=== PATIENT | male | born 1980 | race Asian ===

== ENCOUNTER 2018-05-20 11:43 | Inpatient (IN) | payer MEDICAID ==
[~2018-05-20] VITALS: Ht 167.6 cm; Wt 64.0 kg
[~2018-05-20 11:43] MED LIST: ACET-2178 PO; ACET-2708 PO; ASCO500C18 PO; BACL-141 PO; BISA10SU62 RC; CRAN1CAP10 PO; DEXT15DR5 EACHEYE; DICL100G16 TP; DOCU-138 PO; FERR220S12 PO; GABA-531 PO; HYDR2TAB4 PO; HYDR50CA5 PO; HYDR50TA54 PO; IPRA3AMP9 HHN; LORA0.5T2 PO; LOV40 SUBCUT; MELA5TAB3 PO; MIDO10TA PO; MOM PO; MULT1TAB67 PO; NA P230E RC; OCD MT; OMEP20CA10 PO; SENN-22 PO
[2018-05-20] MEDS ORDERED: FENTANYL CITRATE/PF 50MCG/ML 2ML VIAL IV ONE (12:30)
[2018-05-20] MEDS ORDERED: ONDANSETRON HCL 4MG/2ML INJ IV ONE (12:30)
[2018-05-20] MEDS ORDERED: SODIUM CHLORIDE 0.9% 1000ML BAG (SEPSIS BOLUS) IV ONE (12:30)
[2018-05-20 12:53] LABS: BG BASE EXCESS -1.1 mmol/L (-2.0-2.0); BG CARBOXYHEMOGLOBIN 0.3 % (0.5-1.5); BG DEOXYHEMOGLOBIN 2.1 % (0.0-5.0); BG FRACTION INSPIRED OXYGEN 21; BG HCO3 ACT 21.4 mmol/L (22.0-26.0); BG METHEMOGLOBIN 0.3 % (0.0-1.5); BG OXYGEN SATURATION 97.9 % (92.0-98.5); BG OXYHEMOGLOBIN 97.3 % (94.0-97.0); BG PH 7.501 (7.350-7.450); BG PO2 95.4 mmHg (75.0-100.0); BG SAMPLE SITE RIGHT RADIAL; BG TOTAL HEMOGLOBIN 9.4 g/dL (12.0-18.0); BG VENT MODE ROOM AIR
[2018-05-20 13:04] LABS: BASOPHILS % 0.9 % (0.0-2.0); EOSINOPHILS % 0.8 % (0.0-5.0); HEMATOCRIT. 25.3 % (42.0-52.0); HEMOGLOBIN. 8.2 g/dL (14.0-18.0); LYMPHOCYTES % 9.7 % (20.0-50.0); MEAN CORPUSCULAR HEMOGLOBIN 26.2 pg (28.0-32.0); MEAN CORPUSCULAR VOLUME 80.6 fL (80.0-94.0); MONOCYTES % 6.3 % (2.0-8.0); NEUTROPHILS % 82.3 % (40.0-76.0); PLATELET 577 x1000/uL (130-400); RED BLOOD CELL COUNT 3.14 mill/uL (4.7-6.1); RED CELL DISTRIBUTION WIDTH 16.6 % (11.6-14.6)
[2018-05-20 13:06] LABS: INR 1.2; PARTIAL THROMBOPLASTIN TIME 38.1 sec (23.4-31.0); PROTHROMBIN TIME 11.7 sec (9.1-11.1)
[2018-05-20 13:08] LABS: CHLORIDE 92 mEq/L (98-107)
[2018-05-20 13:32] LABS: CLARITY URINE CLEAR (CLEAR); COLOR URINE YELLOW (YELLOW); KETONES URINE NEGATIVE (NEGATIVE); LEUKOCYTE ESTERASE URINE 2+ (NEGATIVE); NITRITE URINE NEGATIVE (NEGATIVE); OCCULT BLOOD URINE 2+ (NEGATIVE); PH URINE 6.5 (4.5-8.0); PROTEIN URINE NEGATIVE (NEGATIVE); SPECIFIC GRAVITY URINE 1.003 (1.005-1.030)
[2018-05-20] MEDS ORDERED: CEFTRIAXONE 1 G PREMIX 50 ML IV ONE (14:00)
[2018-05-20] MEDS ORDERED: LEVOFLOXACIN 500MG PREMIX 100 ML IV ONE (14:00)
[2018-05-20 17:24] VITALS: BP 95/65
[2018-05-20 18:00] VITALS: BP 101/66
[2018-05-20 20:00] VITALS: BP 99/61
[2018-05-20] MEDS: ENOXAPARIN 40MG/0.4ML SYR SUBCUT SCH (20:55)
[2018-05-20] MEDS: HYDROCODONE/ACETAMINOPHEN 5/325MG TABLET PO PRN (20:55)
[2018-05-20] MEDS: SODIUM CHLORIDE 0.9% 1,000 ML IV SCH (20:56)
[2018-05-20 22:00] VITALS: BP 106/68
[2018-05-21] VITALS (12 sets, daily range): BP systolic 91–127; BP diastolic 55–83
[2018-05-21] MEDS: HYDROCODONE/ACETAMINOPHEN 5/325MG TABLET PO PRN ×3 (05:35→22:51)
[2018-05-21 06:55] LABS: BASOPHILS % 0.5 % (0.0-2.0); EOSINOPHILS % 2.8 % (0.0-5.0); HEMATOCRIT. 23.3 % (42.0-52.0); HEMOGLOBIN. 7.5 g/dL (14.0-18.0); LYMPHOCYTES % 10.5 % (20.0-50.0); MEAN CORPUSCULAR HEMOGLOBIN 26.3 pg (28.0-32.0); MEAN CORPUSCULAR VOLUME 81.7 fL (80.0-94.0); NEUTROPHILS % 79.2 % (40.0-76.0); PLATELET 525 x1000/uL (130-400); RED BLOOD CELL COUNT 2.85 mill/uL (4.7-6.1); RED CELL DISTRIBUTION WIDTH 16.8 % (11.6-14.6)
[2018-05-21 07:18] LABS: CHLORIDE 99 mEq/L (98-107)
[2018-05-21] MEDS: SODIUM CHLORIDE 0.9% 1,000 ML IV SCH ×2 (09:07→22:49)
[2018-05-21] MEDS ORDERED: ACETAMINOPHEN 325MG TABLET PO PRN (10:00)
[2018-05-21] MEDS: ACETAMINOPHEN 325MG TABLET PO PRN (10:02)
[2018-05-21] MEDS: OMEPRAZOLE 20MG CAPSULE EXTENDED RELEASE PO SCH (10:30)
[2018-05-21] MEDS: LEVOFLOXACIN 750MG PREMIX 150 ML IV SCH (11:00)
[2018-05-21] MEDS: GABAPENTIN 300MG CAPSULE PO SCH ×2 (13:54→22:49)
[2018-05-21] MEDS ORDERED: HYDRALAZINE 20MG/ML VIAL IV PRN (18:30)
[2018-05-21 19:38] LABS: HEMOGLOBIN 7.6 g/dL (14.0-18.0)
[2018-05-21 20:35] LABS: HEPATITIS B SURFACE ANTIGEN NEGATIVE
[2018-05-21 21:04] LABS: HEPATITIS B CORE AB IGM NEGATIVE
[2018-05-21 21:05] LABS: HEPATITIS A AB IGM NEGATIVE (NEGATIVE)
[2018-05-22] VITALS (7 sets, daily range): BP systolic 97–151; BP diastolic 59–102
[2018-05-22] MEDS: HYDROCODONE/ACETAMINOPHEN 5/325MG TABLET PO PRN ×3 (03:09→22:22)
[2018-05-22] MEDS: ACETAMINOPHEN 325MG TABLET PO PRN ×3 (04:53→21:05)
[2018-05-22] MEDS: OMEPRAZOLE 20MG CAPSULE EXTENDED RELEASE PO SCH (06:13)
[2018-05-22] MEDS: GABAPENTIN 300MG CAPSULE PO SCH ×3 (06:13→21:05)
[2018-05-22 07:28] LABS: BASOPHILS % 0.7 % (0.0-2.0); EOSINOPHILS % 3.5 % (0.0-5.0); HEMATOCRIT. 24.5 % (42.0-52.0); LYMPHOCYTES % 11.1 % (20.0-50.0); MEAN CORPUSCULAR HEMOGLOBIN 26.6 pg (28.0-32.0); MEAN CORPUSCULAR VOLUME 81.9 fL (80.0-94.0); MEAN PLATELET VOLUME 6.8 fl (7.4-10.4); MONOCYTES % 6.4 % (2.0-8.0); NEUTROPHILS % 78.3 % (40.0-76.0); PLATELET 563 x1000/uL (130-400); RED BLOOD CELL COUNT 2.99 mill/uL (4.7-6.1); RED CELL DISTRIBUTION WIDTH 16.6 % (11.6-14.6)
[2018-05-22 07:55] LABS: CHLORIDE 97 mEq/L (98-107)
[2018-05-22] MEDS: DOCUSATE SODIUM 100MG CAPSULE PO PRN ×2 (11:08→11:10)
[2018-05-22] MEDS: LEVOFLOXACIN 750MG PREMIX 150 ML IV SCH (11:10)
[2018-05-22] MEDS: SODIUM CHLORIDE 0.9% 1,000 ML IV SCH ×2 (11:11→16:57)
[2018-05-22] MEDS ORDERED: NA PHOS,M-B/NA PHOS,DI-BA ENEMA 118ML PR PRN (13:15)
[2018-05-22] MEDS ORDERED: BISACODYL 10MG SUPP PR NR (13:15)
[2018-05-22] MEDS ORDERED: BISACODYL 10MG SUPP PR PRN (13:15)
[2018-05-23] VITALS: BP 109/74
[2018-05-23] MEDS: SODIUM CHLORIDE 0.9% 1,000 ML IV SCH (03:30)
[2018-05-23 04:00] VITALS: BP 98/57
[2018-05-23] MEDS: ACETAMINOPHEN 325MG TABLET PO PRN ×2 (04:38→14:57)
[2018-05-23] MEDS: GABAPENTIN 300MG CAPSULE PO SCH ×3 (06:23→21:27)
[2018-05-23] MEDS: OMEPRAZOLE 20MG CAPSULE EXTENDED RELEASE PO SCH (06:24)
[2018-05-23] MEDS: HYDROCODONE/ACETAMINOPHEN 5/325MG TABLET PO PRN (06:24)
[2018-05-23 07:07] LABS: CHLORIDE 95 mEq/L (98-107)
[2018-05-23 07:22] LABS: HEMATOCRIT 23.6 % (42.0-52.0); HEMOGLOBIN 7.7 g/dL (14.0-18.0); MEAN CORPUSCULAR HEMOGLOBIN 26.5 pg (28.0-32.0); MEAN CORPUSCULAR VOLUME 81.6 fL (80.0-94.0); RED CELL DISTRIBUTION WIDTH 17.1 % (11.6-14.6)
[2018-05-23 08:00] VITALS: BP 100/62
[2018-05-23 09:25] LABS: PLATELET 527 x1000/uL (130-400)
[2018-05-23] MEDS ORDERED: LIDOCAINE HCL 1% 20ML VIAL (Pyxis) INJ ONE (09:33)
[2018-05-23] MEDS ORDERED: SODIUM BICARBONATE 4% (2.4MEQ) 5ML VIAL IV ONE (09:33)
[2018-05-23 11:44] VITALS: BP 122/88
[2018-05-23] MEDS ORDERED: LINEZOLID 600 MG PREMIX 300 ML IV SCH (12:30)
[2018-05-23] MEDS ORDERED: MEROPENEM 500 MG in SODIUM CHLORIDE 0.9% 50 ML IV SCH (12:30)
[2018-05-23] MEDS: NITROFURANTOIN 100MG M/M CAPSULE PO SCH ×2 (15:00→22:58)
[2018-05-23] MEDS ORDERED: MEROPENEM 1000MG in NORMAL SALINE 100ML IV SCH (15:00)
[2018-05-23 16:00] VITALS: BP 103/64
[2018-05-23] MEDS ORDERED: VANCOMYCIN 2,000 MG in DEXT 5% WATER 500 ML IV NR (17:00)
[2018-05-23] MEDS: MEROPENEM 1000MG in NORMAL SALINE 100ML IV SCH (17:34)
[2018-05-23 20:00] VITALS: BP 104/67
[2018-05-23] MEDS: VANCOMYCIN 1250MG in DEXTROSE 5% WATER 250ML IV SCH (23:04)
[2018-05-24] VITALS: BP 111/79
[2018-05-24] MEDS: ACETAMINOPHEN 325MG TABLET PO PRN (00:14)
[2018-05-24] MEDS: MEROPENEM 1000MG in NORMAL SALINE 100ML IV SCH ×3 (02:00→17:26)
[2018-05-24 04:00] VITALS: BP 116/87
[2018-05-24] MEDS: OMEPRAZOLE 20MG CAPSULE EXTENDED RELEASE PO SCH (06:18)
[2018-05-24] MEDS: GABAPENTIN 300MG CAPSULE PO SCH ×3 (06:18→21:15)
[2018-05-24 07:00] LABS: HEMATOCRIT 23.2 % (42.0-52.0); HEMOGLOBIN 7.4 g/dL (14.0-18.0); MEAN CORPUSCULAR HEMOGLOBIN 25.9 pg (28.0-32.0); MEAN CORPUSCULAR VOLUME 81.3 fL (80.0-94.0); PLATELET 690 x1000/uL (130-400); RED BLOOD CELL COUNT 2.85 mill/uL (4.7-6.1); RED CELL DISTRIBUTION WIDTH 16.7 % (11.6-14.6)
[2018-05-24 08:10] LABS: CHLORIDE 101 mEq/L (98-107)
[2018-05-24 08:14] VITALS: BP 102/70
[2018-05-24] MEDS: NITROFURANTOIN 100MG M/M CAPSULE PO SCH ×2 (08:18→21:15)
[2018-05-24] MEDS: VANCOMYCIN 1250MG in DEXTROSE 5% WATER 250ML IV SCH ×2 (08:18→21:15)
[2018-05-24] MEDS: SODIUM CHLORIDE 0.9% 1,000 ML IV SCH (09:18)
[2018-05-24 12:00] VITALS: BP 110/78
[2018-05-24] MEDS ORDERED: LIDOCAINE HCL 1% 20ML VIAL (Pyxis) INJ ONE (12:05)
[2018-05-24] MEDS: HYDROCODONE/ACETAMINOPHEN 5/325MG TABLET PO PRN (14:13)
[2018-05-24 16:00] VITALS: BP 117/85
[2018-05-24] MEDS: DOCUSATE SODIUM 100MG CAPSULE PO SCH (17:27)
[2018-05-24 19:53] VITALS: BP 113/79
[2018-05-25] VITALS: BP 102/64
[2018-05-25] MEDS: MEROPENEM 1000MG in NORMAL SALINE 100ML IV SCH ×3 (01:31→18:11)
[2018-05-25 04:00] VITALS: BP 113/77
[2018-05-25] MEDS: ACETAMINOPHEN 325MG TABLET PO PRN (04:31)
[2018-05-25] MEDS: OMEPRAZOLE 20MG CAPSULE EXTENDED RELEASE PO SCH (06:14)
[2018-05-25] MEDS: GABAPENTIN 300MG CAPSULE PO SCH ×3 (06:14→20:57)
[2018-05-25 07:35] LABS: HEMATOCRIT. 22.8 % (42.0-52.0); HEMOGLOBIN. 7.5 g/dL (14.0-18.0); MEAN CORPUSCULAR HEMOGLOBIN 26.6 pg (28.0-32.0); MEAN CORPUSCULAR VOLUME 80.9 fL (80.0-94.0); PLATELET 672 x1000/uL (130-400); RED BLOOD CELL COUNT 2.82 mill/uL (4.7-6.1); RED CELL DISTRIBUTION WIDTH 17.1 % (11.6-14.6)
[2018-05-25 08:00] VITALS: BP 116/84
[2018-05-25 08:52] LABS: CHLORIDE 96 mEq/L (98-107)
[2018-05-25] MEDS: NITROFURANTOIN 100MG M/M CAPSULE PO SCH ×2 (09:32→20:57)
[2018-05-25] MEDS: VANCOMYCIN 1250MG in DEXTROSE 5% WATER 250ML IV SCH ×2 (09:32→20:57)
[2018-05-25] MEDS: DOCUSATE SODIUM 100MG CAPSULE PO SCH ×2 (09:32→18:11)
[2018-05-25 10:30] LABS: PLATELET ESTIMATE INCREASED
[2018-05-25 12:00] VITALS: BP_SYST 100; BP_SYST 141; BP_DIAS 70; BP_DIAS 96
[2018-05-25] MEDS ORDERED: NA PHOS,M-B/NA PHOS,DI-BA ENEMA 118ML PR ONE (13:00)
[2018-05-25 16:00] VITALS: BP 141/96
[2018-05-25 20:00] VITALS: BP 124/82
[2018-05-26] VITALS: BP 125/79
[2018-05-26] MEDS: MEROPENEM 1000MG in NORMAL SALINE 100ML IV SCH ×3 (01:16→17:09)
[2018-05-26 04:00] VITALS: BP 110/76
[2018-05-26] MEDS: OMEPRAZOLE 20MG CAPSULE EXTENDED RELEASE PO SCH (06:09)
[2018-05-26] MEDS: GABAPENTIN 300MG CAPSULE PO SCH ×3 (06:09→21:28)
[2018-05-26 08:00] VITALS: BP 117/79
[2018-05-26] MEDS: VANCOMYCIN 1250MG in DEXTROSE 5% WATER 250ML IV SCH (09:01)
[2018-05-26] MEDS: NITROFURANTOIN 100MG M/M CAPSULE PO SCH ×2 (09:01→21:28)
[2018-05-26] MEDS: DOCUSATE SODIUM 100MG CAPSULE PO SCH ×2 (09:01→17:09)
[2018-05-26 12:00] VITALS: BP 113/80
[2018-05-26 14:33] LABS: BASOPHILS % 0.8 % (0.0-2.0); EOSINOPHILS % 5.8 % (0.0-5.0); HEMATOCRIT. 24.2 % (42.0-52.0); LYMPHOCYTES % 19.5 % (20.0-50.0); MEAN CORPUSCULAR HEMOGLOBIN 26.8 pg (28.0-32.0); MEAN CORPUSCULAR VOLUME 80.6 fL (80.0-94.0); MEAN PLATELET VOLUME 6.1 fl (7.4-10.4); MONOCYTES % 7.2 % (2.0-8.0); NEUTROPHILS % 66.7 % (40.0-76.0); PLATELET 695 x1000/uL (130-400); RED CELL DISTRIBUTION WIDTH 16.8 % (11.6-14.6)
[2018-05-26] MEDS: VANCOMYCIN 750 MG PREMIX 150 ML IV SCH ×2 (14:38→22:34)
[2018-05-26 16:00] VITALS: BP 128/88
[2018-05-26 20:00] VITALS: BP 97/65
[2018-05-27] VITALS: BP 125/84
[2018-05-27] MEDS: MEROPENEM 1000MG in NORMAL SALINE 100ML IV SCH ×3 (01:36→18:00)
[2018-05-27 04:00] VITALS: BP 107/71
[2018-05-27] MEDS: VANCOMYCIN 750 MG PREMIX 150 ML IV SCH (05:52)
[2018-05-27] MEDS: OMEPRAZOLE 20MG CAPSULE EXTENDED RELEASE PO SCH (06:44)
[2018-05-27] MEDS: GABAPENTIN 300MG CAPSULE PO SCH ×3 (06:45→21:16)
[2018-05-27 07:00] LABS: BASOPHILS % 0.6 % (0.0-2.0); EOSINOPHILS % 4.9 % (0.0-5.0); HEMATOCRIT. 24.8 % (42.0-52.0); LYMPHOCYTES % 20.1 % (20.0-50.0); MEAN CORPUSCULAR HEMOGLOBIN 26.1 pg (28.0-32.0); MEAN CORPUSCULAR VOLUME 80.6 fL (80.0-94.0); MEAN PLATELET VOLUME 6.2 fl (7.4-10.4); MONOCYTES % 6.9 % (2.0-8.0); NEUTROPHILS % 67.5 % (40.0-76.0); PLATELET 732 x1000/uL (130-400); RED BLOOD CELL COUNT 3.07 mill/uL (4.7-6.1); RED CELL DISTRIBUTION WIDTH 16.7 % (11.6-14.6)
[2018-05-27 08:00] VITALS: BP 108/74
[2018-05-27] MEDS: DOCUSATE SODIUM 100MG CAPSULE PO SCH ×2 (09:00→17:26)
[2018-05-27] MEDS: NITROFURANTOIN 100MG M/M CAPSULE PO SCH ×2 (09:00→21:16)
[2018-05-27 12:00] VITALS: BP 115/90
[2018-05-27 16:00] VITALS: BP 107/74
[2018-05-27 20:00] VITALS: BP 100/61
[2018-05-27] MEDS ORDERED: VANCOMYCIN 750 MG PREMIX 150 ML IV SCH (23:00)
[2018-05-28] VITALS: BP 113/81
[2018-05-28] MEDS: MEROPENEM 1000MG in NORMAL SALINE 100ML IV SCH ×3 (03:25→18:00)
[2018-05-28 04:00] VITALS: BP 115/84
[2018-05-28] MEDS: GABAPENTIN 300MG CAPSULE PO SCH ×3 (06:26→21:19)
[2018-05-28] MEDS: OMEPRAZOLE 20MG CAPSULE EXTENDED RELEASE PO SCH (06:26)
[2018-05-28 07:20] LABS: HEMATOCRIT. 23.5 % (42.0-52.0); HEMOGLOBIN. 7.8 g/dL (14.0-18.0); MEAN CORPUSCULAR HEMOGLOBIN 26.7 pg (28.0-32.0); MEAN CORPUSCULAR VOLUME 80.3 fL (80.0-94.0); PLATELET 728 x1000/uL (130-400); RED BLOOD CELL COUNT 2.92 mill/uL (4.7-6.1)
[2018-05-28 07:55] LABS: CHLORIDE 90 mEq/L (98-107)
[2018-05-28 08:00] VITALS: BP 111/84
[2018-05-28] MEDS: DOCUSATE SODIUM 100MG CAPSULE PO SCH ×2 (08:38→17:00)
[2018-05-28] MEDS: NITROFURANTOIN 100MG M/M CAPSULE PO SCH ×2 (09:00→20:51)
[2018-05-28] MEDS: SODIUM CHLORIDE 0.9% 1,000 ML IV SCH (10:45)
[2018-05-28] MEDS ORDERED: HYDROCODONE/ACETAMINOPHEN 5/325MG TABLET PO PRN (10:45)
[2018-05-28] MEDS: VANCOMYCIN 1 G PREMIX 200 ML IV SCH ×2 (11:00→20:51)
[2018-05-28 12:00] VITALS: BP 132/79
[2018-05-28 13:59] LABS: ATYPICAL LYMPHOCYTES 1; PLATELET ESTIMATE MARKEDLY INCREASED
[2018-05-28 16:00] VITALS: BP 98/68
[2018-05-28 19:49] VITALS: BP 102/73
[2018-05-28] MEDS: HYDROMORPHONE HCL/PF 2MG/ML CPJ IV PRN (19:56)
[2018-05-28] MEDS: ENOXAPARIN 40MG/0.4ML SYR SUBCUT SCH (20:51)
[2018-05-29] VITALS: BP 101/64
[2018-05-29] MEDS: HYDROMORPHONE HCL/PF 2MG/ML CPJ IV PRN ×5 (00:18→23:01)
[2018-05-29] MEDS: MEROPENEM 1000MG in NORMAL SALINE 100ML IV SCH ×3 (02:53→17:08)
[2018-05-29 04:00] VITALS: BP 103/76
[2018-05-29] MEDS: OMEPRAZOLE 20MG CAPSULE EXTENDED RELEASE PO SCH (06:29)
[2018-05-29] MEDS: GABAPENTIN 300MG CAPSULE PO SCH ×3 (06:29→21:06)
[2018-05-29 07:42] LABS: BASOPHILS % 0.8 % (0.0-2.0); EOSINOPHILS % 5.2 % (0.0-5.0); HEMATOCRIT. 23.4 % (42.0-52.0); HEMOGLOBIN. 7.7 g/dL (14.0-18.0); MEAN CORPUSCULAR HEMOGLOBIN 26.7 pg (28.0-32.0); MEAN CORPUSCULAR VOLUME 81.3 fL (80.0-94.0); MEAN PLATELET VOLUME 6.3 fl (7.4-10.4); MONOCYTES % 5.1 % (2.0-8.0); NEUTROPHILS % 66.9 % (40.0-76.0); PLATELET 665 x1000/uL (130-400); RED BLOOD CELL COUNT 2.87 mill/uL (4.7-6.1); RED CELL DISTRIBUTION WIDTH 16.8 % (11.6-14.6)
[2018-05-29 08:17] VITALS: BP 99/70
[2018-05-29 08:29] LABS: CHLORIDE 93 mEq/L (98-107)
[2018-05-29] MEDS: VANCOMYCIN 1 G PREMIX 200 ML IV SCH ×2 (08:36→21:06)
[2018-05-29] MEDS: DOCUSATE SODIUM 100MG CAPSULE PO SCH ×2 (08:36→17:08)
[2018-05-29 08:41] LABS: BG BASE EXCESS 3.1 mmol/L (-2.0-2.0); BG CARBOXYHEMOGLOBIN 0.4 % (0.5-1.5); BG FRACTION INSPIRED OXYGEN 21; BG HCO3 ACT 27.5 mmol/L (22.0-26.0); BG METHEMOGLOBIN 0.3 % (0.0-1.5); BG OXYHEMOGLOBIN 97.3 % (94.0-97.0); BG PCO2 40.9 mmHg (35.0-45.0); BG PH 7.445 (7.350-7.450); BG SAMPLE SITE RIGHT RADIAL; BG TOTAL HEMOGLOBIN 8.7 g/dL (12.0-18.0); BG VENT MODE ROOM AIR
[2018-05-29] MEDS: NITROFURANTOIN 100MG M/M CAPSULE PO SCH ×2 (08:47→21:07)
[2018-05-29] MEDS: SODIUM CHLORIDE 0.9% 1,000 ML IV SCH (10:05)
[2018-05-29 12:00] VITALS: BP 100/64
[2018-05-29 16:00] VITALS: BP 139/94
[2018-05-29 20:00] VITALS: BP 120/78
[2018-05-29] MEDS: ENOXAPARIN 40MG/0.4ML SYR SUBCUT SCH (21:06)
[2018-05-30] VITALS: BP 92/61
[2018-05-30] MEDS: MEROPENEM 1000MG in NORMAL SALINE 100ML IV SCH ×3 (01:35→17:00)
[2018-05-30 04:00] VITALS: BP 148/99
[2018-05-30] MEDS: GABAPENTIN 300MG CAPSULE PO SCH ×3 (06:20→21:12)
[2018-05-30] MEDS: OMEPRAZOLE 20MG CAPSULE EXTENDED RELEASE PO SCH (06:20)
[2018-05-30] MEDS: SODIUM CHLORIDE 0.9% 1,000 ML IV SCH ×3 (06:20→23:45)
[2018-05-30] MEDS: HYDROMORPHONE HCL/PF 2MG/ML CPJ IV PRN ×3 (06:32→23:37)
[2018-05-30 07:43] LABS: BASOPHILS % 0.6 % (0.0-2.0); EOSINOPHILS % 6.3 % (0.0-5.0); HEMATOCRIT. 24.1 % (42.0-52.0); HEMOGLOBIN. 7.8 g/dL (14.0-18.0); LYMPHOCYTES % 24.9 % (20.0-50.0); MEAN CORPUSCULAR HEMOGLOBIN 26.6 pg (28.0-32.0); MEAN CORPUSCULAR VOLUME 81.9 fL (80.0-94.0); MEAN PLATELET VOLUME 6.3 fl (7.4-10.4); MONOCYTES % 5.7 % (2.0-8.0); NEUTROPHILS % 62.5 % (40.0-76.0); PLATELET 676 x1000/uL (130-400); RED BLOOD CELL COUNT 2.95 mill/uL (4.7-6.1); RED CELL DISTRIBUTION WIDTH 15.9 % (11.6-14.6)
[2018-05-30 08:14] LABS: CHLORIDE 98 mEq/L (98-107)
[2018-05-30 08:22] VITALS: BP 90/49
[2018-05-30] MEDS: DOCUSATE SODIUM 100MG CAPSULE PO SCH ×2 (08:30→16:49)
[2018-05-30] MEDS: NITROFURANTOIN 100MG M/M CAPSULE PO SCH (08:30)
[2018-05-30] MEDS: VANCOMYCIN 1 G PREMIX 200 ML IV SCH (08:30)
[2018-05-30 12:00] VITALS: BP 100/60
[2018-05-30 16:44] VITALS: BP 116/76
[2018-05-30 20:00] VITALS: BP 101/73
[2018-05-30] MEDS: ENOXAPARIN 40MG/0.4ML SYR SUBCUT SCH (20:22)
[2018-05-30] MEDS: VANCOMYCIN 1500MG in DEXTROSE 5% WATER 250ML IV SCH (23:38)
[2018-05-31] VITALS: BP 125/86
[2018-05-31] MEDS: MEROPENEM 1000MG in NORMAL SALINE 100ML IV SCH ×3 (01:37→16:56)
[2018-05-31 04:00] VITALS: BP 113/78
[2018-05-31] MEDS: SODIUM CHLORIDE 0.9% 1,000 ML IV SCH ×2 (05:25→17:46)
[2018-05-31] MEDS: OMEPRAZOLE 20MG CAPSULE EXTENDED RELEASE PO SCH (06:18)
[2018-05-31] MEDS: GABAPENTIN 300MG CAPSULE PO SCH ×3 (06:19→21:06)
[2018-05-31] MEDS: HYDROMORPHONE HCL/PF 2MG/ML CPJ IV PRN ×3 (06:23→19:14)
[2018-05-31 07:51] LABS: HEMATOCRIT 24.5 % (42.0-52.0); MEAN CORPUSCULAR HEMOGLOBIN 26.6 pg (28.0-32.0); MEAN CORPUSCULAR VOLUME 82.1 fL (80.0-94.0); PLATELET 730 x1000/uL (130-400); RED BLOOD CELL COUNT 2.99 mill/uL (4.7-6.1); RED CELL DISTRIBUTION WIDTH 16.4 % (11.6-14.6)
[2018-05-31 08:00] VITALS: BP 99/68
[2018-05-31 08:12] LABS: CHLORIDE 100 mEq/L (98-107)
[2018-05-31] MEDS: DOCUSATE SODIUM 100MG CAPSULE PO SCH ×2 (10:05→16:57)
[2018-05-31 12:00] VITALS: BP_SYST 109; BP_DIAS 75; BP_DIAS 79
[2018-05-31 16:00] VITALS: BP 106/70
[2018-05-31] MEDS: VANCOMYCIN 1500MG in DEXTROSE 5% WATER 250ML IV SCH (17:45)
[2018-05-31 20:00] VITALS: BP 98/63
[2018-05-31] MEDS: ENOXAPARIN 40MG/0.4ML SYR SUBCUT SCH (20:58)
[2018-06-01] VITALS: BP 126/89
[2018-06-01] MEDS: MEROPENEM 1000MG in NORMAL SALINE 100ML IV SCH ×3 (01:14→18:10)
[2018-06-01] MEDS: HYDROMORPHONE HCL/PF 2MG/ML CPJ IV PRN ×4 (03:03→21:42)
[2018-06-01 04:00] VITALS: BP 109/66
[2018-06-01] MEDS: GABAPENTIN 300MG CAPSULE PO SCH ×3 (06:23→21:31)
[2018-06-01] MEDS: OMEPRAZOLE 20MG CAPSULE EXTENDED RELEASE PO SCH (06:23)
[2018-06-01 07:30] VITALS: BP 106/76
[2018-06-01] MEDS: SODIUM CHLORIDE 0.9% 1,000 ML IV SCH ×3 (08:05→21:31)
[2018-06-01] MEDS: DOCUSATE SODIUM 100MG CAPSULE PO SCH ×2 (09:14→18:11)
[2018-06-01 12:00] VITALS: BP 98/58
[2018-06-01] MEDS: VANCOMYCIN 1500MG in DEXTROSE 5% WATER 250ML IV SCH (12:34)
[2018-06-01 16:00] VITALS: BP 102/62
[2018-06-01 20:00] VITALS: BP 98/61
[2018-06-01] MEDS: ENOXAPARIN 40MG/0.4ML SYR SUBCUT SCH (21:31)
[2018-06-01] MEDS ORDERED: DIPHENHYDRAMINE 25MG CAPSULE PO PRN (22:00)
[2018-06-02] VITALS: BP 90/62
[2018-06-02] MEDS: MEROPENEM 1000MG in NORMAL SALINE 100ML IV SCH ×3 (02:30→18:00)
[2018-06-02 04:00] VITALS: BP 91/61
[2018-06-02 05:31] LABS: CHLORIDE 97 mEq/L (98-107)
[2018-06-02] MEDS: VANCOMYCIN 1500MG in DEXTROSE 5% WATER 250ML IV SCH (06:10)
[2018-06-02] MEDS: HYDROMORPHONE HCL/PF 2MG/ML CPJ IV PRN ×3 (06:17→20:57)
[2018-06-02] MEDS: GABAPENTIN 300MG CAPSULE PO SCH ×3 (06:45→21:50)
[2018-06-02] MEDS: OMEPRAZOLE 20MG CAPSULE EXTENDED RELEASE PO SCH (06:45)
[2018-06-02 07:27] LABS: HEMATOCRIT 24.2 % (42.0-52.0); HEMOGLOBIN 7.9 g/dL (14.0-18.0); MEAN CORPUSCULAR HEMOGLOBIN 26.5 pg (28.0-32.0); MEAN CORPUSCULAR VOLUME 81.1 fL (80.0-94.0); PLATELET 615 x1000/uL (130-400); RED BLOOD CELL COUNT 2.98 mill/uL (4.7-6.1)
[2018-06-02 08:25] VITALS: BP 91/58
[2018-06-02] MEDS: DOCUSATE SODIUM 100MG CAPSULE PO SCH ×2 (10:07→18:00)
[2018-06-02 12:00] VITALS: BP 100/47
[2018-06-02] MEDS: SODIUM CHLORIDE 0.9% 1,000 ML IV SCH (14:48)
[2018-06-02 16:00] VITALS: BP 99/64
[2018-06-02 20:00] VITALS: BP 93/61
[2018-06-02] MEDS: ENOXAPARIN 40MG/0.4ML SYR SUBCUT SCH (20:28)
[2018-06-03] VITALS: BP 94/64
[2018-06-03] MEDS: VANCOMYCIN 1500MG in DEXTROSE 5% WATER 250ML IV SCH (01:25)
[2018-06-03] MEDS: MEROPENEM 1000MG in NORMAL SALINE 100ML IV SCH ×2 (03:09→10:03)
[2018-06-03 04:00] VITALS: BP 99/68
[2018-06-03] MEDS: OMEPRAZOLE 20MG CAPSULE EXTENDED RELEASE PO SCH (06:44)
[2018-06-03] MEDS: SODIUM CHLORIDE 0.9% 1,000 ML IV SCH (06:44)
[2018-06-03] MEDS: GABAPENTIN 300MG CAPSULE PO SCH ×2 (06:44→13:21)
[2018-06-03 08:00] VITALS: BP 106/78
[2018-06-03] MEDS: DOCUSATE SODIUM 100MG CAPSULE PO SCH (08:37)
[2018-06-03] MEDS: HYDROMORPHONE HCL/PF 2MG/ML CPJ IV PRN ×2 (08:51→15:44)
[2018-06-03] MEDS ORDERED: HYDROCORTISONE 2.5% OINT 20GM TOP SCH (09:00)
[2018-06-03 12:15] VITALS: BP 102/63
[2018-06-03 16:00] VITALS: BP 122/72
[2018-06-03 16:32] VITALS: BP 122/72
== END 2018-06-03 18:10 | disposition short-term general hospital (02) | DRG 720 ==
LOC: ER 11:43 → 3WST 13:57 → EDBEDREQTM 14:07 → EDBEDREQSVC 14:07 → EDBEDREQ 14:07 → ENRESERV 14:41 → 8WST 05-22 13:06
PROVIDERS: ADMIT Internal Medicine; ATTEND Internal Medicine
PROC: 02HV33Z Insertion of Infusion Device into Superior Vena Cava, Percutaneous Approach (ICD-10-PCS; principal; 2018-05-23)
PROC: B5181ZA Fluoroscopy of Superior Vena Cava using Low Osmolar Contrast, Guidance (ICD-10-PCS; 2018-05-23)
PROC: B548ZZA Ultrasonography of Superior Vena Cava, Guidance (ICD-10-PCS; 2018-05-23)
DX: A41.01 Sepsis due to Methicillin susceptible Staphylococcus aureus (principal); G82.50 Quadriplegia, unspecified; G93.41 Metabolic encephalopathy; E43 Unspecified severe protein-calorie malnutrition; L89.159 Pressure ulcer of sacral region, unspecified stage; Z93.0 Tracheostomy status; D69.6 Thrombocytopenia, unspecified; D72.1 Eosinophilia; T83.511A Infection and inflammatory reaction due to indwelling urethral catheter, initial encounter; M00.9 Pyogenic arthritis, unspecified; E86.0 Dehydration; E87.1 Hypo-osmolality and hyponatremia; N39.0 Urinary tract infection, site not specified; D64.9 Anemia, unspecified; I10 Essential (primary) hypertension; K21.9 Gastro-esophageal reflux disease without esophagitis; M46.28 Osteomyelitis of vertebra, sacral and sacrococcygeal region; Y84.6 Urinary catheterization as the cause of abnormal reaction of the patient, or of later complication, without mention of misadventure at the time of the procedure; R74.0 Nonspecific elevation of levels of transaminase and lactic acid dehydrogenase [LDH]; I24.9 Acute ischemic heart disease, unspecified; M25.451 Effusion, right hip; B95.62 Methicillin resistant Staphylococcus aureus infection as the cause of diseases classified elsewhere; Z16.12 Extended spectrum beta lactamase (ESBL) resistance; K56.41 Fecal impaction; B96.20 Unspecified Escherichia coli [E. coli] as the cause of diseases classified elsewhere; Z68.22 Body mass index [BMI] 22.0-22.9, adult; Z74.01 Bed confinement status; Y92.89 Other specified places as the place of occurrence of the external cause; Z79.899 Other long term (current) drug therapy
CPT/HCPCS: 36415; 36569; 36600; 71045; 72195; 74018; 76705; 76937; 77001; 80048; 80076; 80202; 82270; 82375; 82805; 83605; 83735; 83880; 84484; 85007; 85014; 85018; 85027; 85651; 86140; 86705; 86709; 86803; 87077; 87186; 87340; 93005; 93306; 93970; 93971; 96374; 96375; 99291; A6261; C1725; C1769; J0696; J1170; J1650; J1956; J2185; J2405; J3010; J3370; J3490; J7030; J7050; J7060

== ENCOUNTER 2019-02-17 13:49 | Inpatient (IN) | payer MEDICAID ==
[~2019-02-17] VITALS: Ht 172.7 cm; Wt 67.6 kg
[~2019-02-17 13:49] MED LIST changes: -ACET-2178 PO; -ACET-2708 PO; -ASCO500C18 PO; -BISA10SU62 RC; -DEXT15DR5 EACHEYE; -DICL100G16 TP; -DOCU-138 PO; -LOV40 SUBCUT; -OCD MT; -OMEP20CA10 PO; +OMEP20CA5 PO
[2019-02-17] MEDS ORDERED: SODIUM CHLORIDE 0.9% 1,000 ML IV ONE ×2 (14:01→17:30)
[2019-02-17] MEDS ORDERED: LEVETIRACETAM 500MG PREMIX 100 ML IV ONE (14:15)
[2019-02-17] MEDS ORDERED: LORAZEPAM 2MG/ML CPJ IV ONE (14:15)
[2019-02-17] MEDS ORDERED: LORAZEPAM 2MG/ML CPJ ONE (14:17)
[2019-02-17 14:59] LABS: BASOPHILS % 0.4 % (0.0-2.0); EOSINOPHILS % 2.9 % (0.0-5.0); HEMATOCRIT. 45.5 % (42.0-52.0); HEMOGLOBIN. 15.1 g/dL (14.0-18.0); LYMPHOCYTES % 15.8 % (20.0-50.0); MEAN CORPUSCULAR HEMOGLOBIN 29.1 pg (28.0-32.0); MEAN PLATELET VOLUME 6.9 fl (7.4-10.4); MONOCYTES % 6.4 % (2.0-8.0); NEUTROPHILS % 74.5 % (40.0-76.0); PLATELET 422 x1000/uL (130-400); RED BLOOD CELL COUNT 5.17 mill/uL (4.7-6.1); RED CELL DISTRIBUTION WIDTH 14.7 % (11.6-14.6)
[2019-02-17 15:02] LABS: CLARITY URINE CLOUDY (CLEAR); COLOR URINE YELLOW (YELLOW); KETONES URINE NEGATIVE (NEGATIVE); LEUKOCYTE ESTERASE URINE 3+ (NEGATIVE); NITRITE URINE NEGATIVE (NEGATIVE); OCCULT BLOOD URINE 2+ (NEGATIVE); PH URINE 7.5 (4.5-8.0); PROTEIN URINE NEGATIVE (NEGATIVE); SPECIFIC GRAVITY URINE 1.002 (1.005-1.030); UROBILINOGEN URINE 0.2 E.U./dL (0.2-1.0)
[2019-02-17 15:07] LABS: CHLORIDE 103 mEq/L (98-107)
[2019-02-17] MEDS ORDERED: CEFTRIAXONE 1 G PREMIX 50 ML IV ONE (15:15)
[2019-02-17] MEDS ORDERED: ACETAMINOPHEN 325MG TABLET PO PRN (17:30)
[2019-02-17] MEDS ORDERED: CEFTRIAXONE 1 G PREMIX 50 ML IV SCH (17:30)
[2019-02-17] MEDS ORDERED: ONDANSETRON HCL 4MG/2ML INJ IV PRN (17:30)
[2019-02-17] MEDS ORDERED: LORAZEPAM 2MG/ML CPJ IV PRN (17:30)
[2019-02-17] MEDS ORDERED: SODIUM CHLORIDE 0.9% 1,000 ML IV SCH (17:30)
[2019-02-17] MEDS ORDERED: DILTIAZEM HCL 5MG/ML 5ML VIAL IV ONE (20:15)
[2019-02-17 21:32] VITALS: BP 113/71
[2019-02-17] MEDS: LEVETIRACETAM 500MG TABLET PO SCH (23:05)
[2019-02-17] MEDS: ENOXAPARIN 40MG/0.4ML SYR SUBCUT SCH (23:05)
[2019-02-17] MEDS: SODIUM CHLORIDE 0.9% 1,000 ML IV SCH (23:06)
[2019-02-18] VITALS (7 sets, daily range): BP systolic 97–120; BP diastolic 48–88
[2019-02-18 06:49] LABS: BASOPHILS % 0.4 % (0.0-2.0); EOSINOPHILS % 1.1 % (0.0-5.0); HEMATOCRIT. 36.7 % (42.0-52.0); LYMPHOCYTES % 12.4 % (20.0-50.0); MEAN CORPUSCULAR HEMOGLOBIN 28.9 pg (28.0-32.0); MEAN PLATELET VOLUME 7.3 fl (7.4-10.4); MONOCYTES % 3.5 % (2.0-8.0); NEUTROPHILS % 82.6 % (40.0-76.0); PLATELET 310 x1000/uL (130-400); RED BLOOD CELL COUNT 4.17 mill/uL (4.7-6.1); RED CELL DISTRIBUTION WIDTH 14.7 % (11.6-14.6)
[2019-02-18] MEDS: LEVETIRACETAM 500MG TABLET PO SCH ×2 (08:59→20:14)
[2019-02-18 09:35] LABS: CHLORIDE 115 mEq/L (98-107)
[2019-02-18] MEDS ORDERED: MORPHINE SULFATE 2 MG/ML CPJ (NOT FOR IM USE) IV SCH (13:45)
[2019-02-18] MEDS ORDERED: HYDROCODONE/ACETAMINOPHEN 5/325MG TABLET PO PRN (13:45)
[2019-02-18] MEDS: SODIUM CHLORIDE 0.9% 1,000 ML IV SCH (14:30)
[2019-02-18] MEDS: HYDROMORPHONE HCL/PF 2MG/ML CPJ IV PRN ×2 (15:56→20:09)
[2019-02-18] MEDS ORDERED: POTASSIUM CHLORIDE 20MEQ TABLET SR PO NR (16:15)
[2019-02-18] MEDS: CEFTRIAXONE 1 G PREMIX 50 ML IV SCH (16:56)
[2019-02-18] MEDS: ENOXAPARIN 40MG/0.4ML SYR SUBCUT SCH (20:14)
[2019-02-19] MEDS: HYDROMORPHONE HCL/PF 2MG/ML CPJ IV PRN ×6 (00:32→22:27)
[2019-02-19 04:00] VITALS: BP 117/75
[2019-02-19] MEDS: SODIUM CHLORIDE 0.9% 1,000 ML IV SCH ×2 (04:41→16:48)
[2019-02-19 07:08] LABS: CHLORIDE 109 mEq/L (98-107)
[2019-02-19 07:12] LABS: BASOPHILS % 0.4 % (0.0-2.0); EOSINOPHILS % 4.5 % (0.0-5.0); HEMATOCRIT. 32.1 % (42.0-52.0); HEMOGLOBIN. 10.8 g/dL (14.0-18.0); LYMPHOCYTES % 22.1 % (20.0-50.0); MEAN CORPUSCULAR HEMOGLOBIN 29.4 pg (28.0-32.0); MEAN CORPUSCULAR VOLUME 87.5 fL (80.0-94.0); MEAN PLATELET VOLUME 7.1 fl (7.4-10.4); MONOCYTES % 3.8 % (2.0-8.0); NEUTROPHILS % 69.2 % (40.0-76.0); PLATELET 301 x1000/uL (130-400); RED BLOOD CELL COUNT 3.67 mill/uL (4.7-6.1); RED CELL DISTRIBUTION WIDTH 14.5 % (11.6-14.6)
[2019-02-19 08:00] VITALS: BP 138/94
[2019-02-19] MEDS: LEVETIRACETAM 500MG TABLET PO SCH ×2 (08:32→20:35)
[2019-02-19 12:00] VITALS: BP 138/96
[2019-02-19] MEDS ORDERED: KETOROLAC 15MG/ML VIAL IV PRN (13:30)
[2019-02-19 16:00] VITALS: BP 156/89
[2019-02-19] MEDS: CEFTRIAXONE 1 G PREMIX 50 ML IV SCH (16:34)
[2019-02-19 20:00] VITALS: BP 143/91
[2019-02-19] MEDS: DIPHENHYDRAMINE 50MG/ML VIAL IV PRN (20:06)
[2019-02-19] MEDS: ENOXAPARIN 40MG/0.4ML SYR SUBCUT SCH (20:37)
[2019-02-20] VITALS: BP 109/81
[2019-02-20] MEDS: SODIUM CHLORIDE 0.9% 1,000 ML IV SCH ×2 (03:24→21:20)
[2019-02-20] MEDS: HYDROMORPHONE HCL/PF 2MG/ML CPJ IV PRN ×5 (03:30→21:00)
[2019-02-20 04:00] VITALS: BP 111/75
[2019-02-20 06:19] LABS: BASOPHILS % 0.5 % (0.0-2.0); EOSINOPHILS % 6.2 % (0.0-5.0); HEMATOCRIT. 32.5 % (42.0-52.0); LYMPHOCYTES % 28.6 % (20.0-50.0); MEAN CORPUSCULAR HEMOGLOBIN 29.4 pg (28.0-32.0); MEAN CORPUSCULAR VOLUME 86.9 fL (80.0-94.0); MEAN PLATELET VOLUME 6.8 fl (7.4-10.4); MONOCYTES % 4.8 % (2.0-8.0); NEUTROPHILS % 59.9 % (40.0-76.0); PLATELET 325 x1000/uL (130-400); RED BLOOD CELL COUNT 3.74 mill/uL (4.7-6.1); RED CELL DISTRIBUTION WIDTH 14.4 % (11.6-14.6)
[2019-02-20 06:29] LABS: CHLORIDE 106 mEq/L (98-107)
[2019-02-20 08:00] VITALS: BP 137/100
[2019-02-20] MEDS: LEVETIRACETAM 500MG TABLET PO SCH ×2 (08:20→21:00)
[2019-02-20] MEDS ORDERED: VANCOMYCIN 1500MG in DEXTROSE 5% WATER 250ML IV SCH (10:00)
[2019-02-20] MEDS: CEFEPIME 1,000 MG in DEXTROSE 5% WATER 50 ML IV SCH ×2 (11:54→21:20)
[2019-02-20 12:00] VITALS: BP 141/107
[2019-02-20] MEDS: DIPHENHYDRAMINE 50MG/ML VIAL IV PRN (13:24)
[2019-02-20] MEDS ORDERED: VANCOMYCIN 1 G PREMIX 200 ML IV SCH (18:00)
[2019-02-20 20:00] VITALS: BP 128/102
[2019-02-20] MEDS: ENOXAPARIN 40MG/0.4ML SYR SUBCUT SCH (21:01)
[2019-02-21] VITALS: BP 119/83
[2019-02-21] MEDS: HYDROMORPHONE HCL/PF 2MG/ML CPJ IV PRN ×5 (01:06→20:14)
[2019-02-21 04:00] VITALS: BP 114/81
[2019-02-21] MEDS: SODIUM CHLORIDE 0.9% 1,000 ML IV SCH ×2 (06:45→21:05)
[2019-02-21] MEDS: VANCOMYCIN 1250MG in DEXTROSE 5% WATER 250ML IV SCH (06:49)
[2019-02-21 07:45] LABS: CHLORIDE 104 mEq/L (98-107)
[2019-02-21 07:53] LABS: BASOPHILS % 0.5 % (0.0-2.0); EOSINOPHILS % 6.5 % (0.0-5.0); HEMATOCRIT. 35.2 % (42.0-52.0); HEMOGLOBIN. 11.9 g/dL (14.0-18.0); LYMPHOCYTES % 21.4 % (20.0-50.0); MEAN CORPUSCULAR HEMOGLOBIN 29.3 pg (28.0-32.0); MEAN CORPUSCULAR VOLUME 87.1 fL (80.0-94.0); MEAN PLATELET VOLUME 7.1 fl (7.4-10.4); MONOCYTES % 5.1 % (2.0-8.0); NEUTROPHILS % 66.5 % (40.0-76.0); PLATELET 334 x1000/uL (130-400); RED BLOOD CELL COUNT 4.04 mill/uL (4.7-6.1); RED CELL DISTRIBUTION WIDTH 14.1 % (11.6-14.6)
[2019-02-21 08:11] VITALS: BP 136/95
[2019-02-21] MEDS: CEFEPIME 1,000 MG in DEXTROSE 5% WATER 50 ML IV SCH ×2 (08:47→20:46)
[2019-02-21] MEDS: LEVETIRACETAM 500MG TABLET PO SCH ×2 (08:56→20:46)
[2019-02-21 12:00] VITALS: BP 102/73
[2019-02-21 16:00] VITALS: BP 132/86
[2019-02-21 20:00] VITALS: BP 153/94
[2019-02-21] MEDS: ENOXAPARIN 40MG/0.4ML SYR SUBCUT SCH (20:46)
[2019-02-22] VITALS: BP 120/84
[2019-02-22] MEDS: VANCOMYCIN 1250MG in DEXTROSE 5% WATER 250ML IV SCH (00:30)
[2019-02-22 04:00] VITALS: BP 98/54
[2019-02-22] MEDS: HYDROMORPHONE HCL/PF 2MG/ML CPJ IV PRN ×5 (04:24→22:06)
[2019-02-22 05:51] LABS: CHLORIDE 108 mEq/L (98-107)
[2019-02-22 06:24] LABS: BASOPHILS % 0.5 % (0.0-2.0); HEMATOCRIT. 33.6 % (42.0-52.0); HEMOGLOBIN. 11.4 g/dL (14.0-18.0); LYMPHOCYTES % 16.8 % (20.0-50.0); MEAN CORPUSCULAR HEMOGLOBIN 29.7 pg (28.0-32.0); MEAN CORPUSCULAR VOLUME 87.3 fL (80.0-94.0); MONOCYTES % 6.6 % (2.0-8.0); NEUTROPHILS % 68.1 % (40.0-76.0); PLATELET 343 x1000/uL (130-400); RED BLOOD CELL COUNT 3.85 mill/uL (4.7-6.1); RED CELL DISTRIBUTION WIDTH 14.3 % (11.6-14.6)
[2019-02-22 08:00] VITALS: BP 118/73
[2019-02-22] MEDS: SODIUM CHLORIDE 0.9% 1,000 ML IV SCH ×2 (08:50→21:29)
[2019-02-22] MEDS: LEVETIRACETAM 500MG TABLET PO SCH ×2 (08:57→20:25)
[2019-02-22] MEDS: CEFEPIME 1,000 MG in DEXTROSE 5% WATER 50 ML IV SCH ×2 (09:20→21:29)
[2019-02-22 12:00] VITALS: BP 120/79
[2019-02-22] MEDS: LEVOFLOXACIN 500MG TABLET PO SCH (12:03)
[2019-02-22 16:00] VITALS: BP 145/100
[2019-02-22] MEDS: VANCOMYCIN 750 MG PREMIX 150 ML IV SCH (17:36)
[2019-02-22 20:00] VITALS: BP 149/100
[2019-02-22] MEDS: ENOXAPARIN 40MG/0.4ML SYR SUBCUT SCH (20:25)
[2019-02-23] VITALS: BP 99/71
[2019-02-23 04:00] VITALS: BP 149/99
[2019-02-23] MEDS: VANCOMYCIN 750 MG PREMIX 150 ML IV SCH ×2 (06:01→19:11)
[2019-02-23] MEDS: HYDROMORPHONE HCL/PF 2MG/ML CPJ IV PRN ×5 (06:02→23:20)
[2019-02-23 08:11] VITALS: BP 120/67
[2019-02-23 08:52] LABS: BASOPHILS % 0.7 % (0.0-2.0); EOSINOPHILS % 7.4 % (0.0-5.0); HEMATOCRIT. 34.2 % (42.0-52.0); HEMOGLOBIN. 11.6 g/dL (14.0-18.0); LYMPHOCYTES % 21.2 % (20.0-50.0); MEAN CORPUSCULAR HEMOGLOBIN 29.4 pg (28.0-32.0); MEAN CORPUSCULAR VOLUME 86.6 fL (80.0-94.0); MEAN PLATELET VOLUME 7.1 fl (7.4-10.4); MONOCYTES % 6.8 % (2.0-8.0); NEUTROPHILS % 63.9 % (40.0-76.0); PLATELET 352 x1000/uL (130-400); RED BLOOD CELL COUNT 3.95 mill/uL (4.7-6.1); RED CELL DISTRIBUTION WIDTH 14.3 % (11.6-14.6)
[2019-02-23] MEDS: CEFEPIME 1,000 MG in DEXTROSE 5% WATER 50 ML IV SCH ×2 (09:31→21:27)
[2019-02-23] MEDS: LEVETIRACETAM 500MG TABLET PO SCH ×2 (09:31→20:00)
[2019-02-23] MEDS: LEVOFLOXACIN 500MG TABLET PO SCH (10:33)
[2019-02-23 12:55] VITALS: BP 92/59
[2019-02-23 16:49] VITALS: BP 107/63
[2019-02-23 20:00] VITALS: BP 118/86
[2019-02-23] MEDS: ENOXAPARIN 40MG/0.4ML SYR SUBCUT SCH (20:00)
[2019-02-23] MEDS: SODIUM CHLORIDE 0.9% 1,000 ML IV SCH (23:19)
[2019-02-24] VITALS: BP 147/102
[2019-02-24 04:00] VITALS: BP 97/67
[2019-02-24] MEDS: HYDROMORPHONE HCL/PF 2MG/ML CPJ IV PRN ×3 (05:06→14:45)
[2019-02-24] MEDS: VANCOMYCIN 750 MG PREMIX 150 ML IV SCH (05:33)
[2019-02-24 08:00] VITALS: BP 100/74
[2019-02-24] MEDS: LEVETIRACETAM 500MG TABLET PO SCH (09:30)
[2019-02-24] MEDS: CEFEPIME 1,000 MG in DEXTROSE 5% WATER 50 ML IV SCH (09:51)
[2019-02-24 12:00] VITALS: BP 94/62
[2019-02-24] MEDS: LEVOFLOXACIN 500MG TABLET PO SCH (12:01)
[2019-02-24] MEDS ORDERED: KEPP500 PO (12:13)
[2019-02-24] MEDS ORDERED: ASPI-1158 MT (12:13)
[2019-02-24] MEDS ORDERED: CEFE2FRO IV (12:13)
[2019-02-24] MEDS ORDERED: ATOR20TA65 MT (12:13)
[2019-02-24] MEDS ORDERED: SULF1TAB48 MT (12:13)
[2019-02-24] MEDS ORDERED: LEVO500T89 MT (12:20)
[2019-02-24] MEDS: SODIUM CHLORIDE 0.9% 1,000 ML IV SCH (14:00)
[2019-02-24 14:52] VITALS: BP 153/103
[2019-02-24 16:00] VITALS: BP 104/74
== END 2019-02-24 17:21 | DRG 720 ==
LOC: ER 13:49 → 7WST 16:22 → ENRESERV 20:31
PROVIDERS: ADMIT Internal Medicine; ATTEND Internal Medicine
PROC: 4A10X4Z Monitoring of Central Nervous Electrical Activity, External Approach (ICD-10-PCS; principal; 2019-02-19)
DX: A41.02 Sepsis due to Methicillin resistant Staphylococcus aureus (principal); G82.50 Quadriplegia, unspecified; L89.313 Pressure ulcer of right buttock, stage 3; L89.323 Pressure ulcer of left buttock, stage 3; A41.52 Sepsis due to Pseudomonas; I10 Essential (primary) hypertension; G40.409 Other generalized epilepsy and epileptic syndromes, not intractable, without status epilepticus; K21.9 Gastro-esophageal reflux disease without esophagitis; N39.0 Urinary tract infection, site not specified; F32.9 Major depressive disorder, single episode, unspecified; Z22.322 Carrier or suspected carrier of Methicillin resistant Staphylococcus aureus; Z74.01 Bed confinement status; Z79.899 Other long term (current) drug therapy; Z79.82 Long term (current) use of aspirin; I69.398 Other sequelae of cerebral infarction
CPT/HCPCS: 36415; 70551; 71045; 80048; 80202; 84134; 87077; 87186; 93005; 93970; 96365; 96366; 96367; 96375; 99291; A6261; J0692; J0696; J1170; J1200; J1650; J1885; J1953; J2060; J2270; J3370; J3490; J7030; J7060